=== PATIENT | female | born 1985 | race Two or more races ===

== ENCOUNTER 2024-10-05 17:14 | Emergency (ER) | payer OTHER ==
[~2024-10-05] VITALS: Ht 152.4 cm; Wt 65.8 kg
[2024-10-05] MEDS ORDERED: SYNTHROID50 MCG PO (17:22)
[2024-10-05 19:34] LABS: BASO % 0.7 % (0.1-1.2); EOS % 4.1 % (0.7-7.0); HEMATOCRIT 37.4 % (34.1-44.9); HEMOGLOBIN 12.9 g/dL (11.2-15.7); LYMPH # 2.17 (1.18-3.74); LYMPH % 22.1 % (19.3-53.1); MEAN CORPUSCULAR HEMOGLOBIN 32.2 pg (25.6-32.2); MONO # 0.57 (0.24-0.82); MONO % 5.8 % (4.7-12.5); NEUT # 6.57 (1.56-6.13); NEUT % 67.1 % (34.0-71.1); PLATELET COUNT 379 K/uL (163-369); RED BLOOD COUNT 4.01 M/uL (3.93-5.22); RED CELL DISTRIBUTION WIDTH 11.8 % (11.6-14.4)
[2024-10-05 19:56] LABS: URINE APPEARANCE Clear; URINE BILIRRUBIN Negative (NEGATIVE); URINE BLOOD Large; URINE COLOR Yellow; URINE GLUCOSE Negative (NEGATIVE); URINE KETONE 15 (NEGATIVE); URINE LEUKOCYTE Trace; URINE NITRATE Negative; URINE PROTEIN 30 (NEGATIVE); URINE UROBILINOGEN 0.2 E.U./dl
[2024-10-05 19:57] LABS: URINE BACTERIA 605.8 uL (0.0-1933); URINE EPITHELIAL CELLS 57.1 uL (0.0-38.8); URINE RBC 339.2 uL (0.0-20.8); URINE WBC 14.5 uL (0.0-23.2)
[2024-10-05 20:05] LABS: ALBUMIN 4.1 gm/dL (3.4-5.0); BILIRUBIN TOTAL 0.45 mg/dL (0.3-1.2); CALCIUM 8.9 mg/dL (8.5-10.1); CREATININE SERUM 0.6 mg/dL (0.55-1.02); GFR 112.49; GLOBULINA 3.9 G/DL (2.4-3.5); POTASSIUM 3.73 mEq/L (3.5-5.1)
[2024-10-05 20:05] LABS: URINE CAST 0.44 uL (0.0-1.40)
== END 2024-10-05 22:31 | disposition home or self-care (01) ==
LOC: ER 18:18
PROVIDERS: Preventive Medicine Public Health & General Preventive Medicine
DX: O20.8 Other hemorrhage in early pregnancy (principal); Z3A.01 Less than 8 weeks gestation of pregnancy; O20.9 Hemorrhage in early pregnancy, unspecified; E03.8 Other specified hypothyroidism